=== PATIENT | female | born 1975 | race Caucasian/White ===

== ENCOUNTER 2018-12-30 09:04 | Emergency (ER) | payer MEDICAID ==
[~2018-12-30] VITALS: Ht 152.4 cm; Wt 88.5 kg
[2018-12-30 09:30] VITALS: BP_SYST 125
--- NOTE | 2018-12-30 09:55 | NUR ---
Patient to ER bed 3 to gown for evaluation. Side rails up. Report given to Kena RUSS.
--- NOTE | 2018-12-30 10:05 | NUR ---
ER Dr. Almanzar at bedside examining patient.
--- NOTE | 2018-12-30 10:06 | NUR ---
Patient ptesented to ER with C/O left ear pain. Patient A&Ox4, skin pink and warm, afebrile, ambulatory to ER, pain 08/24, denies N/V/D, left ear swelling. Patient states she has left ear pain was tx at [facility] Wednesday given ABX drops today pain has increased and now has throat pain. Patient states she has stomach ulcer and takes PO Gabapentin.
[2018-12-30 10:33] LABS: BASOPHILS # (AUTO) 0.1 K/uL (0.0-0.2); EOSINOPHILS # (AUTO) 0.1 K/uL (0.0-0.4); EOSINOPHILS % (AUTO) 1.4 % (0.0-4.0); HEMATOCRIT 37.7 % (36-48); HEMOGLOBIN 12.8 g/dL (12.0-16.0); LYMPHOCYTES # (AUTO) 1.1 K/uL (1.0-5.5); MEAN CORPUSCULAR HEMOGLOBIN 28 pg (27-31); MEAN CORPUSCULAR HGB CONC 34 % (32-36); MEAN CORPUSCULAR VOLUME 82 fL (79.0-98.0); MONOCYTES # (AUTO) 0.4 K/uL (0.0-1.0); MONOCYTES % (AUTO) 4.7 % (1.7-9.3); NEUTROPHILS # (AUTO) 7.6 K/uL (1.8-7.7); NEUTROPHILS % (AUTO) 80.9 % (40.0-70.0); PLATELET COUNT (AUTO) 257 K/uL (130-430); RED BLOOD CELL COUNT(AUTO) 4.57 MIL/uL (4.2-6.2); RED CELL DISTRIBUTION WIDTH 14.3 % (9.0-15.0); WHITE BLOOD COUNT (AUTO) 9.4 K/uL (4.8-10.8)
[2018-12-30 10:54] LABS: CALCIUM 8.3 mg/dL (8.4-11.0); CREATININE 0.65 mg/dL (0.55-1.30); POTASSIUM 4.1 mmol/L (3.5-5.1)
[2018-12-30 10:58] LABS: ALBUMIN 3.4 g/dL (3.4-4.8); C-REACTIVE PROTEIN QUANT 4.9 mg/dL (0-0.5); TOTAL BILIRUBIN 0.4 mg/dL (0.0-1.0)
[2018-12-30 12:10] VITALS: BP_SYST 125
--- NOTE | 2018-12-30 12:10 | NUR ---
Patient given written and verbal discharge instructions and verbalizes understanding. ER MD discussed with patient the results and treatment provided. Patient in stable condition. ID arm band removed. Rx of [place], Clindamycin, Ibuprofen, Neomycin Otic solution given. Patient educated on pain management and to follow up with PMD. Pain Scale 2/10 tolerable for patient. Opportunity for questions provided and answered. Medication side effect fact sheet provided.
[2018-12-30] MEDS ORDERED: MORPHINE 4 MG/ML INJ. SYRINGE IM ONE (12:15)
== END 2018-12-30 12:10 | disposition home or self-care (01) ==
LOC: SED 09:04
DX: H60.92 Unspecified otitis externa, left ear (principal)
CPT/HCPCS: 36415; 80053; 81002; 81025; 83036; 83605; 85025; 86140; 99283

== ENCOUNTER 2019-01-29 18:08 | Emergency (ER) | payer MEDICAID ==
[~2019-01-29] VITALS: Ht 152.4 cm; Wt 86.2 kg
[2019-01-29 18:44] VITALS: BP_SYST 157
--- NOTE | 2019-01-29 19:00 | NUR ---
Patient to ER bed h1 to gown for evaluation. Side rails up.
--- NOTE | 2019-01-29 19:10 | NUR ---
ER PA Gallagher at bedside examining patient.
[2019-01-29 20:50] VITALS: BP_SYST 141
--- NOTE | 2019-01-29 20:50 | NUR ---
Patient given written and verbal discharge instructions and verbalizes understanding. ER MD discussed with patient the results and treatment provided. Patient in stable condition. ID arm band removed. Rx of Ibuprofen given. Patient educated on pain management and to follow up with PMD. Pain Scale 3/10. Opportunity for questions provided and answered. Medication side effect fact sheet provided.
== END 2019-01-29 20:50 | disposition home or self-care (01) ==
LOC: SED 18:08
DX: M54.10 Radiculopathy, site unspecified (principal); M25.532 Pain in left wrist; R03.0 Elevated blood-pressure reading, without diagnosis of hypertension; Z90.49 Acquired absence of other specified parts of digestive tract
CPT/HCPCS: 99282

== ENCOUNTER 2021-12-09 06:44 | Day surgery (SDC) | payer MEDICAID ==
[2021-12-08 10:53] LABS: HCG,QUAL RESULT NEGATIVE (NEGATIVE)
[~2021-12-09] VITALS: Ht 154.9 cm; Wt 86.6 kg
[2021-12-09] MEDS ORDERED: MEPERIDINE 100 MG INJ. 100 MG/ML VIAL ONE (07:04)
[2021-12-09] MEDS ORDERED: SIMETHICONE 40 MG/0.6 ML ML ONE (07:04)
[2021-12-09] MEDS ORDERED: MIDAZOLAM HCL 5 MG/5 ML VIAL ONE (07:05)
[2021-12-09] MEDS ORDERED: BENZOCAINE 20% 0.5mL UD SPRAY MM ONE (09:29)
[2021-12-09 15:48] VITALS: BP_SYST 136
== END 2021-12-09 11:10 | disposition home or self-care (01) ==
LOC: SDS 06:44 → SMU 06:45 → SDS 11:10
PROVIDERS: ATTEND Internal Medicine
DX: R13.10 Dysphagia, unspecified (principal); K29.50 Unspecified chronic gastritis without bleeding; K22.2 Esophageal obstruction; I85.00 Esophageal varices without bleeding; K51.811 Other ulcerative colitis with rectal bleeding; K44.9 Diaphragmatic hernia without obstruction or gangrene; Z20.822 Contact with and (suspected) exposure to COVID-19; Z90.49 Acquired absence of other specified parts of digestive tract
CPT/HCPCS: 84703; 36415; 43249; 43239; 88305; 88312; 88313; 99152; U0003; G0378; J2250; J2175